=== PATIENT | female | born 1965 | race Caucasian/White ===

== ENCOUNTER 2020-09-08 07:59 | Inpatient (IN) ==
--- NOTE | 2020-08-08 13:07 | PAT Medication Instructions ---
Medication Instructions Date of Service August 08, 2020 Home Medications 1 dose PO QAM Probiotic 1 tab PO QAM acetaminophen [Tylenol Arthritis] 650 mg PO Q12H PRN acetaminophen [Tylenol Extra Strength] 500 mg PO Q6H PRN biotin 1 dose PO QAM diphenhydramine HCl [Benadryl] 25 mg PO HS gabapentin 600 mg PO TID loratadine 10 mg PO QAM meloxicam 15 mg PO QAM pantoprazole 20 mg PO BID turmeric 400 mg PO QAM vitamin B complex [Super B Complex] 1 cap PO QAM ASK your surgeon for instructions meloxicam 15 mg PO QAM STOP taking 2 weeks before surgery (or as soon as possible if surgery is within 2 weeks) turmeric 400 mg PO QAM DO NOT take the morning of surgery 1 dose PO QAM Probiotic 1 tab PO QAM biotin 1 dose PO QAM loratadine 10 mg PO QAM vitamin B complex [Super B Complex] 1 cap PO QAM Take morning of surgery With a small sip of water, OTHERWISE NOTHING TO EAT OR DRINK AFTER MIDNIGHT: acetaminophen [Tylenol Arthritis] 650 mg PO Q12H PRN(okay to take up to 4 hours prior to surgery if needed) acetaminophen [Tylenol Extra Strength] 500 mg PO Q6H PRN(okay to take up to 4 hours prior to surgery if needed) gabapentin 600 mg PO TID pantoprazole 20 mg PO BID Take evening before surgery acetaminophen [Tylenol Arthritis] 650 mg PO Q12H PRN (if needed) acetaminophen [Tylenol Extra Strength] 500 mg PO Q6H PRN (if needed) diphenhydramine HCl [Benadryl] 25 mg PO HS gabapentin 600 mg PO TID pantoprazole 20 mg PO BID Other Notes If you have any questions please call us at [phone] or [phone] or [phone] or [phone]
--- NOTE | 2020-08-09 13:36 | Anesthesiology Consultation ---
Date of Service August 09, 2020 Assessment & Plan (1) Encounter for pre-operative examination: - Per assessment on 08/09: Travel screen negative. No current COVID-19 related symptoms. Patient was COVID positive 07/22/20 (tested due to exposure)- has completed quarantine and was asymptomatic throughout. DOS will be 1+ month after positive COVID test. Surgeon arranging preop COVID testing (scheduled 08/15; surgeon's office). Awaiting results. - Chlorhexidine: Patient had burning/itching with chlorhexidine in the past. No wipes given. - PONV: PONV x multiple surgeries- "severe." Patient states that she has had improvement when scope patch used in the past but still additionally needed further medication post-operatively. Scope patch ordered for AM DOS. Chart Review Chart Review: Acceptable Risk for Surgery and Patient seen in Pre Admission Testing Teaching & Discussion Pre-Anesthesia Teaching/Discussion Notes: Instructed NPO after midnight before surgery,except medications with 15 cc of water. Medication instructions provided according to the PAT guidelines. History Surgery Operation Date: 08/22/20 07:45 Proposed Procedures p L4-S1 Decompression Fusion, L3-L4 Hardware Removal - Asad Stringer, Height/Weight Height: 4 ft 10 in Weight: 68 kg Allergies Allergy/AdvReac Type Severity Reaction Status Date / Time chlorhexidine Allergy burning, Verified 07/18/20 16:23 itching codeine AdvReac Unknown hyperactive Verified 08/09/20 13:35 Medications Home Medications Medication Instructions Recorded Confirmed Last Taken 1 dose PO QAM 07/18/20 07/18/20 Unknown Probiotic 1 tab PO QAM 07/18/20 07/18/20 Unknown acetaminophen [Tylenol Arthritis] 650 mg PO Q12H PRN 07/18/20 07/18/20 Unknown acetaminophen [Tylenol Extra 500 mg PO Q6H PRN 07/18/20 07/18/20 Unknown Strength] biotin 1 dose PO QAM 07/18/20 07/18/20 Unknown diphenhydramine HCl [Benadryl] 25 mg PO HS 07/18/20 07/18/20 Unknown gabapentin 600 mg PO TID 07/18/20 07/18/20 Unknown loratadine 10 mg PO QAM 07/18/20 07/18/20 Unknown meloxicam 15 mg PO QAM 07/18/20 07/18/20 Unknown pantoprazole 20 mg PO BID 07/18/20 07/18/20 Unknown turmeric 400 mg PO QAM 07/18/20 07/18/20 Unknown vitamin B complex [Super B Complex] 1 cap PO QAM 07/18/20 07/18/20 Unknown Past Medical History Medical History Degenerative disc disease GERD (gastroesophageal reflux disease) Obesity Osteoarthritis Spinal stenosis Exercise / Class Metabolic Activity III < 4 Walking/Shop/Light housework Past Family History Family History Mother PONV (postoperative nausea and vomiting) Diabetes Past Surgical History Surgical History History of carpal tunnel release of both wrists History of section x 2 History of colonoscopy History of esophagogastroduodenoscopy (EGD) History of knee replacement procedure of left knee History of knee replacement procedure of right knee History of laminectomy History of left hip replacement History of lumbar fusion History of ovarian cystectomy History of right hip replacement History of sinus surgery x 2 History of total abdominal hysterectomy and bilateral salpingo-oophorectomy Past Anesthesia History No Hx of Anesthesia Complications (except PONV) and No Family Hx of Anesthesia Complications (except mother (PONV)) History of PONV No Hx of Motion Sickness and History of PONV (multiple surgeries- "severe." Patient states that she has had improvement when scope patch used in the past but still additionally needed further medication post-operatively. ) Social History Smoking Status: Former smoker Do You Dip or Chew Tobacco: No Smoking End Date: Quit 2015 (hx tobacco use x 20+ years) Hx Alcohol Use: Yes Alcohol type: beer, wine and hard liquor alcohol intake frequency: 0-2 drinks per day (1-2 drinks/day) Hx Substance Use: Yes substance use type: marijuana Substance Use Type Other:: medical marijuana (tincture + inhaled HS) for insom kunal- advised [place] protocol Review of Systems Patient denies chest pain, shortness of breath, dyspnea on exertion, fever, chills, cough, wheezing, palpitations. Physical Exam Vital Signs VITALS BP 114/66 P 78 TEMP 98.4 SP02 96%RA RESP 18 PHYSICAL Full neck and c-spine range of motion. Full TMJ range of motion. TMD 3 finger breaths Mallampati Score 2 Dentition: intact Lungs: clear throughout to auscultation Cardiac: regular rate and rhythm with occasional extra beat, no murmurs noted Spine: normal Carotid arteries: negative bruit Extremities: no edema Testing Laboratory Results 08/09/20 14:00 08/09/20 14:00 PT 10.5 Seconds (9.0-12.0) 08/09/20 14:00 INR 1.0 (0.9-1.1) 08/09/20 14:00 APTT 29.0 Seconds (21.0-31.0) 08/09/20 14:00 Urine Color Yellow 08/09/20 14:00 Urine Appearance Clear (Clear) 08/09/20 14:00 Urine pH 5.0 (4.5-7.5) 08/09/20 14:00 Ur Specific [place] 1.015 (1.000-1.030) 08/09/20 14:00 Urine Protein Negative (Negative) 08/09/20 14:00 Urine Glucose (UA) Negative (Negative) 08/09/20 14:00 Urine Ketones Negative (Negative) 08/09/20 14:00 Urine Nitrite Negative (Negative) 08/09/20 14:00 Ur Leukocyte Esterase Negative (Negative) 08/09/20 14:00 Blood Type O Positive 08/09/20 14:00 Antibody Screen NEGATIVE 08/09/20 14:00 Electrocardiogram Date: 08/09/20 SB with sinus arrhythmia at 50bpm. Otherwise normal ECG. No significant change compared to 08/23/16 per pan washer review. Chest X-Ray Date: 08/09/20 FINDINGS: Cardiomediastinal and hilar silhouettes are within normal limits. Calcific plaque of the thoracic aorta. There is no pneumothorax, pleural effusion, airspace consolidation or overt pulmonary edema. Degenerative changes of the shoulders and spine. Grade 1 retrolisthesis L2 on L3. Posterior interbody radha and screw fusion hardware noted at L3-L4. IMPRESSION: No acute process.
--- NOTE | 2020-08-09 14:30 | XRay Report ---
XR chest Pre-admission PA/Lat HISTORY: 55 years-old Female pat preoperative exam. No acute chest complaints COMPARISON: None TECHNIQUE: PA and lateral views of the chest FINDINGS: Cardiomediastinal and hilar silhouettes are within normal limits. Calcific plaque of the thoracic aor ta. There is no pneumothorax, pleural effusion, airspace consolidation or overt pulmonary edema. Dege nerative changes of the shoulders and spine. Grade 1 retrolisthesis L2 on L3. Posterior interbody radha and screw fusion hardware noted at L3-L4. IMPRESSION: No acute process. ACT 112: Negative or not required by law. The above report was generated using voice recognition software. It may contain grammatical, syntax o r spelling errors. Electronically signed by: Vasyl Wallace M.D. 08/09/2020 2:29 PM
[2020-08-09 14:58] LABS: Basophils # (auto) 0.01 K/uL (0-0.2); Basophils % (auto) 0.2 %; Eosinophils % (auto) 1.9 %; Hematocrit (blood only) 37.2 % (37-47); Hemoglobin 12.2 g/dL (12.0-16.0); Immature Granulocytes # (auto) 0.01 K/uL (0.00-0.02); Immature Granulocytes % (auto) 0.2 %; Lymphocytes # (auto) 1.34 K/uL (1.2-3.4); Lymphocytes % (auto) 25.5 %; Mean Corpuscular Hemoglobin 31.5 pg (25-34); Mean Corpuscular Hgb Conc 32.8 g/dL (32-36); Mean Corpuscular Volume 96.1 fL (80-100); Mean Platelet Volume 8.8 fL (7.4-10.4); Monocytes # (auto) 0.27 K/uL (0.11-0.59); Monocytes % (auto) 5.1 %; Neutrophils # (auto) 3.52 K/uL (1.4-6.5); Neutrophils % (auto) 67.1 %; Platelet Count 268 K/uL (130-400); RDW Coefficient of Variation 12.4 % (11.5-14.5); RDW Standard Deviation 43.2 fL (36.4-46.3); Red Blood Count 3.87 M/uL (4.2-5.4); White Blood Count 5.25 K/uL (4.8-10.8)
[2020-08-09 15:03] LABS: Appearance Urine Clear (Clear); Bilirubin Urine Negative (Negative); Blood Urine Negative (Negative); Color Urine Yellow; Glucose Urine UA Negative (Negative); Ketones Urine Negative (Negative); Leukocyte Esterase Urine Negative (Negative); Nitrite Urine Negative (Negative); Protein Urine Negative (Negative); Specific Gravity Urine 1.015 (1.000-1.030); Urobilinogen Urine Negative (Negative)
[2020-08-09 15:10] LABS: Prothrombin Time 10.5 Seconds (9.0-12.0)
[2020-08-09 15:12] LABS: BUN Creatinine Ratio 20.1 (10-20); Calcium 9.3 mg/dl (8.5-10.1); Creatinine Clr Calc Pharmacy 71.3 ml/min; Est GFR (African American) 108.5; Est GFR (Non-African American) 93.6; Potassium 3.7 mmol/L (3.5-5.1)
--- NOTE | 2020-08-10 05:08 | Electrocardiogram Report ---
Test Reason : Blood Pressure : / mmHG Vent. Rate : 050 BPM Atrial Rate : 050 BPM P-R Int : 158 ms QRS Dur : 098 ms QT Int : 424 ms P-R-T Axes : 071 064 041 degrees QTc Int : 386 ms Sinus bradycardia with sinus arrhythmia Otherwise normal ECG When compared with ECG of 23-AUG-2016 13:26, No significant change was found Confirmed by Ariel Mahoney ([id number]) on 08/10/2020 5:08:04 AM Referred By: Asad Stringer Confirmed By:Ariel Mahoney
[~2020-09-08 07:59] MED LIST: ACETAMINOPHEN 500 MG TAB PO SCH; CeleBREX 200 MG CAP PO SCH; GABAPENTIN 600 MG DOSE PO SCH; LR 15ML/HR IV SCH; Scopolamine CHECK PATCH PLACEMENT SCH; ceFAZolin 1000MG 1,000 MG/7.5 ML SYR IV SCH
[2020-09-08] MEDS ORDERED: fentaNYL citrate 100 MCG/2 ML VIAL ONE (08:13)
[2020-09-08] MEDS ORDERED: MIDAZOLAM HCL 1 MG/ML 2ML VIAL ONE (08:13)
--- NOTE | 2020-09-08 08:58 | History & Physical Bridge Note ---
Date of Service September 08, 2020 History & Physical Bridge Note I have examined the patient, reviewed the History & Physical and in the interval since the performance of the History & Physical I have noted the following changes of clinical significance: no changes noted
--- NOTE | 2020-09-08 08:59 | History & Physical Report ---
Date of Service September 08, 2020 Assessment & Plan (1) Neurogenic claudication due to lumbar spinal stenosis: Admission and Anticipated Discharge Date Admission Date: L4-S1 decompression fusion, hardware removal L3-L4. History of Present Illness Chief Complaint: Back and bilateral leg pain Primary Care Provider: Asad Hsu DO This is a 55-year-old female who presents with chronic persistent back and bilateral leg pain. After failing course of nonoperative care is here for surgical intervention. Allergies Allergy/AdvReac Type Severity Reaction Status Date / Time codeine AdvReac Unknown hyperactive Verified 09/08/20 08:28 Home Medications Medication Instructions Recorded Confirmed Type 1 dose PO QAM 07/18/20 09/08/20 History Probiotic 1 tab PO QAM 07/18/20 09/08/20 History acetaminophen [Tylenol Arthritis] 650 mg PO Q12H PRN 07/18/20 09/08/20 History acetaminophen [Tylenol Extra 500 mg PO Q6H PRN 07/18/20 09/08/20 History Strength] biotin 1 dose PO QAM 07/18/20 09/08/20 History diphenhydramine HCl [Benadryl] 25 mg PO HS 07/18/20 09/08/20 History gabapentin 600 mg PO TID 07/18/20 09/08/20 History loratadine 10 mg PO QAM 07/18/20 09/08/20 History meloxicam 15 mg PO QAM 07/18/20 09/08/20 History pantoprazole [Protonix] 20 mg PO BID 07/18/20 09/08/20 History turmeric 400 mg PO QAM 07/18/20 09/08/20 History vitamin B complex [Super B Complex] 1 cap PO QAM 07/18/20 09/08/20 History Past Med/Surg History Medical History (Updated 09/08/20 @ 08:58 by Asad Stringer DO) Degenerative disc disease GERD (gastroesophageal reflux disease) Obesity Osteoarthritis Spinal stenosis Surgical History History of carpal tunnel release of both wrists History of section x 2 History of colonoscopy History of esophagogastroduodenoscopy (EGD) History of knee replacement procedure of left knee History of knee replacement procedure of right knee History of laminectomy History of left hip replacement History of lumbar fusion History of ovarian cystectomy History of right hip replacement History of sinus surgery x 2 History of total abdominal hysterectomy and bilateral salpingo-oophorectomy Family History Mother PONV (postoperative nausea and vomiting) Diabetes Social History Smoking Status: Former smoker Smoking End Date: Quit 2015 (hx tobacco use x 20+ years); Second Hand Exposure: No; Do You Dip or Chew Tobacco: No; Tobacco Cessation Education Requested by Patient: No Hx Alcohol Use: Yes Alcohol type: beer, wine and hard liquor Hx Substance Use: Yes Substance Use Type Other:: medical marijuana (tincture + inhaled HS) for insomnia- advised [place] protocol Preferred Language: Macedonian Communication Ability: Effective Manager Lvn Required: No Beliefs That Will Affect Care: None Current Living Situation: Spouse Feels Safe at Home: Yes Safety Concerns: Feels Safe At This Time Assistive Devices: Glasses Physical Exam Physical Exam: Patient is alert and oriented neurologically intact Heart regular in rhythm Lungs clear to auscultation
[2020-09-08] MEDS ORDERED: PROMETHAZINE HCL 6.25 MG in SODIUM CHLORIDE 0.9% 50 ML IV PRN (09:08)
[2020-09-08] MEDS ORDERED: fentaNYL citrate 100 MCG/2 ML VIAL IV PRN (09:08)
[2020-09-08] MEDS ORDERED: HYDROmorphone INJ 2 MG/ML SYR/VIAL IV PRN (09:08)
[2020-09-08] MEDS ORDERED: ePHEDrine sulfate 50 MG/ML AMP IV PRN (09:08)
[2020-09-08] MEDS ORDERED: ATROPINE SULFATE 0.1 MG/ML 10ML SYR IV PRN (09:08)
[2020-09-08] MEDS ORDERED: ONDANSETRON INJ 2 MG/ML 2 ML VIAL IV PRN ×2 (09:08→14:00)
[2020-09-08] MEDS ORDERED: BACITRACIN INJ 50,000 UNIT VIAL ONE (09:18)
[2020-09-08] MEDS: LACTATED RINGER'S 1,000 ML IV SCH ×2 (09:19→14:16)
[2020-09-08] MEDS ORDERED: BUPIVACAINE/EPINEPHRINE 0.5% MPF 1:200,000 30 ML VIAL ONE (09:19)
[2020-09-08] MEDS ORDERED: HYDROmorphone INJ 2 MG/ML SYR/VIAL ONE (10:14)
[2020-09-08] MEDS ORDERED: ROCURONIUM BROMIDE 10 MG/ML 5 ML VIAL IV ONE (10:16)
[2020-09-08] MEDS ORDERED: ONDANSETRON INJ 2 MG/ML 2 ML VIAL ONE (10:16)
[2020-09-08] MEDS ORDERED: LIDOCAINE HCL 2% 2 ML VIAL/AMP(20MG/ML) INFIL ONE (10:16)
[2020-09-08] MEDS ORDERED: NEOSTIGMINE METHYLSULFATE 1 MG/ML 10ML VIAL ONE (10:16)
[2020-09-08] MEDS ORDERED: GLYCOPYRROLATE 0.2 MG/ML VIAL ONE (10:16)
[2020-09-08] MEDS ORDERED: ePHEDrine sulfate 50 MG/ML SYR ONE (10:16)
[2020-09-08] MEDS ORDERED: PROPOFOL IV EMULSION 10 MG/ML 20 ML VIAL IV ONE (10:16)
[2020-09-08] MEDS ORDERED: DEXAMETHASONE SOD INJ 4 MG/ML VIAL ONE (10:16)
[2020-09-08] MEDS ORDERED: LARYING-O-JET KIT (LTA) ONE (10:16)
[2020-09-08] MEDS ORDERED: PHENYLEPHRINE 100MCG/ML 5ML SYR ONE (10:16)
[2020-09-08] MEDS ORDERED: FLOSEAL HEMOSTATIC MATRIX 10ML TOP ONE (10:54)
[2020-09-08] MEDS ORDERED: ceFAZolin 1000MG 1,000 MG/7.5 ML SYR IV ONE (11:20)
--- NOTE | 2020-09-08 12:24 | Operative Report ---
Post Operative Report Pre & Post Diagnosis Operation Date: 09/08/20 09:35 Pre-Op Diagnosis: Spinal Stenosis lumbar Regsion with Neurogenic Claudication Post-Op Diagnosis: Spinal Stenosis lumbar Regsion with Neurogenic Claudication I identified the patient and participated in the time-out.: Yes Procedure Operation Date: 09/08/20 09:35 Actual Procedures #1 removal of instrumentation L3-L4 per #2 exploration of fusion L3-4 per #3 revision decompression with bilateral medial facetectomies and foraminotomies L4-5 and L5-S1. #4 posterior spinal fusion L3-4 L4-5 L5-S1. #5 placement posterior segmental instrumentation L3-4 L4-5 L5-S1. #6 interbody fusion L5-S1. #7 placement peek cage 11 x 26 mm at L5-S1. #8 placement of locally harvested morselized autograft in the posterior gutters. #9 placement infuse collagen sponge and master graft in the posterior lateral gutters and ostial amp interbody space. Surgeon Asad Stringer, DO [employer] Maksim Lopez Estimated Blood Loss 350 Findings Consistent with Post-Op Diagnosis Specimens None Indications This is a 55-year-old female known to me the presents with the above-mentioned diagnosis after failing extensive course of nonoperative care and having decline in neurologic function is here for surgical intervention. Description of Procedure Patient was met with identified informed consent obtained. Patient was then taken to the operative suite underwent a patient placed in a prone position Kayode table top Antoni frame. All bony prominences well-padded eyes inspected to ensure no external pressure placed upon the. This point the lumbar spine was prepped and draped in a sterile fashion. Sharp dissection with assistance of Bovie cartilage form down to and exposing the instrumentation at L3-L4 and the remaining lamina at L5 and the transverse processes and sacral ala. I then proceeded move the hardware at L3 and L4 bilaterally explore the fusion mass appreciating some lack of maturity. I then performed revision complete laminectomy of L5 and L4 from caudal to cephalad fashion putting bilateral medi al facetectomies and foraminotomies addressing severe spinal stenosis. Pedicle screws were then placed in all 3 L4-L5 and S1 levels with the assistance of fluoroscopy the proper sized radha placed. By way of a transforaminal approach on the right a complete discectomy of L5-S1 was performed endplates curetted to subcortical being bone and a 11 x 26 mm peek cage filled with osteobone graft tapped position. Rods were then locked in final position bilaterally. The transverse processes of L3 L4-5 and the sacral ala burred to subcortical bleeding bone. Infuse collagen sponge master graft local graft was placed in the posterior gutters. 15 round JASMYN drain inserted. The incision was then closed with 1 Vicryl fascia 2-0 Vicryl subcutaneously and 4 Monocryl for final skin closure. Steri-Strip sterile dressings placed. Patient will continue PACU stable condition. Please note spinal cord monitoring was utilized at the procedure no changes noted. Lastly Maksim Lopez was present at the entire surgery involved in patient positioning complex portions of the surgery and final skin closure. I attest to the content of the Intraoperative Record and any orders documented therein. Any exceptions are noted below.
--- NOTE | 2020-09-08 12:29 | Fluoroscopy Report ---
FL lumbar spine 2-3V HISTORY: 55 years-old Female L4-S1 DECOMPRESSION/FUSION chronic low back pain COMPARISON: None TECHNIQUE: 4 Spot fluoroscopic views of the lumbar spine were obtained utilizing 30.2 seconds fluoros copy time FINDINGS: Posterior interbody radha and screw fusion hardware noted at what appears to be the L3-S1 levels. Disce ctomy changes at L5-S1. The hardware appears intact. No acute fracture or subluxation identified. Mul tilevel disc space narrowing with spondylitic spurring. Indeterminate small linear opaque structure o verlies the right posterior aspect of the L5-S1 disc space with additional partially imaged linear op aque structure of the midline lower pelvis. IMPRESSION: Fluoroscopic assistance as above. Please see operative report for further details. ACT 112: Negative or not required by law. The above report was generated using voice recognition software. It may contain grammatical, syntax o r spelling errors. Electronically signed by: Vasyl Wallace M.D. 09/08/2020 12:27 PM
--- NOTE | 2020-09-08 13:39 | Anesthesiology Progress Note ---
Date of Service September 08, 2020 Anesthesia Post Procedure Vital Signs Vital Signs: Temp Pulse Pulse Resp BP BP Pulse Ox 09/08/20 13:30 36.1 C L 89 16 99/58 L 100 09/08/20 13:15 55 L 14 98/61 L 97 09/08/20 13:05 56 L 15 102/63 98 09/08/20 12:55 66 14 106/55 L 100 09/08/20 12:45 36.1 C L 87 16 111/64 100 09/08/20 08:32 37.3 C 60 18 144/86 H 100 Pain Intensity Bilateral Lower Back: Pain Intensity: 5 Left Leg: Pain Intensity: 4 Right Leg: Pain Intensity: 7 Transfer of Care Handoff Completed per policy Notes Mental Status: alert / awake / arousable Patient Amnestic to Procedure: Yes Nausea / Vomiting: adequately controlled Pain: adequately controlled Airway Patency, RR, SpO2: stable & adequate BP & HR: stable & adequate Hydration State: stable & adequate Anesthetic Complications: no major complications apparent
[2020-09-08] MEDS ORDERED: SOD PHOSPHATE/SOD BIPHOSPHATE ENEMA 132 ML BTL PR PRN (14:00)
[2020-09-08] MEDS ORDERED: FAMOTIDINE 20 MG TAB PO PRN (14:00)
[2020-09-08] MEDS ORDERED: PROMETHAZINE HCL 12.5 MG in SODIUM CHLORIDE 0.9% 50 ML IV PRN ×2 (14:00→16:05)
[2020-09-08] MEDS ORDERED: LORazepam 0.5 MG TAB PO PRN (14:00)
[2020-09-08] MEDS ORDERED: NALOXONE HCL 0.4 MG/1 ML VIAL/CARP IV PRN (14:00)
[2020-09-08] MEDS ORDERED: diphenhydrAMINE Capsule 25 MG CAP PO PRN (14:00)
[2020-09-08] MEDS ORDERED: METOCLOPRAMIDE HCL INJ 5 MG/ML 2 ML VIAL IV PRN (14:00)
[2020-09-08] MEDS ORDERED: HYDROmorphone INJ 0.5 MG/0.5 ML SYR IV PRN (14:00)
[2020-09-08] MEDS ORDERED: HYDROmorphone INJ 1 MG/ML SYRINGE IV PRN (14:00)
[2020-09-08] MEDS ORDERED: hydrOXYzine HCl 25 MG TAB PO PRN (14:00)
[2020-09-08] MEDS ORDERED: DO NOT ADMINISTER FLU VACCINE PRN (14:00)
[2020-09-08] MEDS ORDERED: ALUMINUM/MAGNESIUM SUSP 30 ML UDC PO PRN (14:00)
[2020-09-08] MEDS ORDERED: ACETAMINOPHEN 1,000 MG/100 ML VIAL IV PRN (14:00)
[2020-09-08] MEDS ORDERED: traMADol HCL 50 MG TABLET PO PRN (14:00)
[2020-09-08] MEDS ORDERED: ACETAMINOPHEN 500 MG TAB PO PRN (14:00)
[2020-09-08] MEDS ORDERED: bisacodyL 10 MG SUPP PR PRN (14:00)
[2020-09-08] MEDS ORDERED: ONDANSETRON 4 MG OD TAB PO PRN (14:00)
[2020-09-08] MEDS ORDERED: LORazepam 0.5 MG/1 ML VIAL IV PRN (14:00)
[2020-09-08] MEDS ORDERED: DO NOT ADMINISTER PNEUMOCOCCAL VACCINE PRN (14:00)
[2020-09-08] MEDS ORDERED: MAGNESIUM HYDROXIDE SUSP 30 ML UDC PO PRN (14:00)
[2020-09-08] MEDS: KETOROLAC TROMETHAMINE 15 MG/ML VIAL IV SCH ×2 (14:22→20:32)
[2020-09-08] MEDS: GABAPENTIN 600 MG TAB PO SCH ×2 (15:50→20:31)
--- NOTE | 2020-09-08 16:08 | Hospitalist Progress Note ---
Date of Service September 08, 2020 Assessment & Plan (1) Neurogenic claudication due to lumbar spinal stenosis: post op per ortho (2) Nausea: has zofran prn added phenergan prn breakthrough nausea has prn pepcid, added one time dose now supportive care (3) DVT prophylaxis: per ortho - scds Admission and Anticipated Discharge Date Admission Date: September 08, 2020 Subjective feeling ok other than nausea. notes that she typically gets nausaeted for a day or so after surgeries. still has leg symptoms but notes they were going on for a while Review of Systems Review of Systems: All systems reviewed & are unremarkable except as noted in HPI & below Physical Exam Physical Exam: gen aao pleasant nad heent nc at mmm breathing unlabored no accessory muscles good effort skin no rashes no palllor or icterus neuro no focal deficits Results & Data Results & Data ([facility]) Vital Signs (Past 12 Hours) Vital Signs Temp Pulse Pulse Pulse Resp BP BP 09/08/20 15:54 97.3 F L 56 L 16 106/69 09/08/20 14:53 78 17 104/70 09/08/20 13:50 97.3 F L 63 14 118/72 09/08/20 13:30 97.0 F L 89 16 99/58 L 09/08/20 13:15 55 L 14 98/61 L 09/08/20 13:05 56 L 15 102/63 09/08/20 12:55 66 14 106/55 L 09/08/20 12:45 97.0 F L 87 16 111/64 09/08/20 08:32 99.1 F 60 18 144/86 H Pulse Ox 09/08/20 15:54 96 09/08/20 14:53 100 09/08/20 13:50 97 09/08/20 13:30 100 09/08/20 13:15 97 09/08/20 13:05 98 09/08/20 12:55 100 09/08/20 12:45 100 09/08/20 08:32 100 PG Care Time/CCT Total # of Minutes Spent Total Time Spent with Patient: Total time spent is greater than 50% in coordination of care (as documented) at patient's floor/unit and/or counseling patient: Coding Level of Care Code 48582 Subseq Hosp Care Lvl 2 Diagnoses Neurogenic claudication due to lumbar spinal stenosis M48.062 Nausea R11.0 DVT prophylaxis Z29.9
[2020-09-08] MEDS ORDERED: FAMOTIDINE 20 MG in SYRINGE 3 ML IV ONE (16:30)
[2020-09-08] MEDS: ceFAZolin 1000MG 1,000 MG/7.5 ML SYR IV SCH (17:18)
[2020-09-08] MEDS: DOCUSATE SODIUM/SENNA 50/8.6MG TAB PO SCH (20:30)
[2020-09-08] MEDS: PANTOprazole 40 MG TAB PO SCH (20:31)
[2020-09-08] MEDS: diphenhydrAMINE Capsule 25 MG CAP PO SCH (20:32)
[2020-09-09] MEDS: LACTATED RINGER'S 1,000 ML IV SCH ×2 (00:18→09:29)
[2020-09-09] MEDS: ceFAZolin 1000MG 1,000 MG/7.5 ML SYR IV SCH (02:32)
[2020-09-09] MEDS: KETOROLAC TROMETHAMINE 15 MG/ML VIAL IV SCH ×2 (02:32→07:56)
[2020-09-09] MEDS: POLYETHYLENE (MIRALAX) 17 GM PACK PO SCH ×4 (05:30→23:37)
[2020-09-09] MEDS: oxyCODONE HCL IR 5 MG TAB (IMMEDIATE RELEASE) PO PRN ×2 (05:36→20:11)
[2020-09-09 06:21] LABS: Basophils # (auto) 0.01 K/uL (0-0.2); Basophils % (auto) 0.2 %; Hematocrit (blood only) 27.5 % (37-47); Hemoglobin 9.2 g/dL (12.0-16.0); Immature Granulocytes # (auto) 0.02 K/uL (0.00-0.02); Immature Granulocytes % (auto) 0.3 %; Lymphocytes # (auto) 1.49 K/uL (1.2-3.4); Lymphocytes % (auto) 22.6 %; Mean Corpuscular Hemoglobin 31.8 pg (25-34); Mean Corpuscular Hgb Conc 33.5 g/dL (32-36); Mean Corpuscular Volume 95.2 fL (80-100); Mean Platelet Volume 8.6 fL (7.4-10.4); Monocytes # (auto) 0.37 K/uL (0.11-0.59); Monocytes % (auto) 5.6 %; Neutrophils % (auto) 71.3 %; Platelet Count 214 K/uL (130-400); RDW Coefficient of Variation 12.3 % (11.5-14.5); RDW Standard Deviation 41.8 fL (36.4-46.3); Red Blood Count 2.89 M/uL (4.2-5.4); White Blood Count 6.59 K/uL (4.8-10.8)
[2020-09-09 06:58] LABS: BUN Creatinine Ratio 16.4 (10-20); Calcium 8.3 mg/dl (8.5-10.1); Creatinine Clr Calc Pharmacy 89.8 ml/min; Est GFR (African American) 120.1; Est GFR (Non-African American) 103.6
[2020-09-09] MEDS: LORATADINE 10 MG TAB PO SCH (09:27)
[2020-09-09] MEDS: MULTIVITAMIN TAB PO SCH (09:27)
[2020-09-09] MEDS: PANTOprazole 40 MG TAB PO SCH ×2 (09:28→20:11)
[2020-09-09] MEDS: ADVANCED PROBIOTIC 1250 MG CAPSULE PO SCH (09:28)
[2020-09-09] MEDS: GABAPENTIN 600 MG TAB PO SCH ×3 (09:28→20:11)
--- NOTE | 2020-09-09 10:54 | Orthopedic Progress Note ---
Date of Service September 09, 2020 Assessment & Plan (1) Neurogenic claudication due to lumbar spinal stenosis: Admission and Anticipated Discharge Date Admission Date: September 08, 2020 This time continue physical therapy monitor JASMYN output anticipate discharge home in the next few days. Subjective Back pain controlled leg symptoms improved still significant numbness to left lower extremity Physical Exam Physical Exam: Patient is ambulating halls with a walker appears comfortable Results & Data ([facility]) Vital Signs (Past 12 Hours) Vital Signs Temp Pulse Resp BP Pulse Ox 09/09/20 05:58 36.9 C 79 16 121/64 96 09/09/20 02:50 37.2 C 88 16 96/60 L 93 09/08/20 23:50 36.8 C 85 16 97/64 L 92
--- NOTE | 2020-09-09 15:46 | Hospitalist Progress Note ---
Date of Service September 09, 2020 Assessment & Plan (1) Neurogenic claudication due to lumbar spinal stenosis: post op per ortho (2) Nausea: resolved (3) Anemia: acute blood loss in the range of expected. appears asymptomatic. BP/HR acceptable (4) DVT prophylaxis: per ortho - scds (5) Discharge planning issues: per ortho PT eval and treat medically appearing overall stable - will sign off at this time, thanks Admission and Anticipated Discharge Date Admission Date: September 08, 2020 Subjective feeling better nausea better dw ortho Review of Systems Review of Systems: All systems reviewed & are unremarkable except as noted in HPI & below Physical Exam Physical Exam: gen aaox3 pleasant nad heent nc at mmm breathing unlabored no accessory muscles good effort skin no rashes no pallor or icterus Results & Data Results & Data ([facility]) Vital Signs (Past 12 Hours) Vital Signs Temp Pulse Resp BP Pulse Ox 09/09/20 05:58 98.4 F 79 16 121/64 96 PG Care Time/CCT Total # of Minutes Spent Total Time Spent with Patient: Total time spent is greater than 50% in coordination of care (as documented) at patient's floor/unit and/or counseling patient: Coding Level of Care Code 61583 Subseq Hosp Care Lvl 1 Diagnoses Neurogenic claudication due to lumbar spinal stenosis M48.062 Nausea R11.0 Anemia D64.9 DVT prophylaxis Z29.9 Discharge planning issues Z02.9
[2020-09-09] MEDS: diphenhydrAMINE Capsule 25 MG CAP PO SCH (20:11)
[2020-09-09] MEDS: DOCUSATE SODIUM/SENNA 50/8.6MG TAB PO SCH (20:11)
[2020-09-10] MEDS: POLYETHYLENE (MIRALAX) 17 GM PACK PO SCH ×2 (00:31→13:15)
[2020-09-10] MEDS ORDERED: DEXAMETHASONE SOD PHOSPHATE 8 MG in SYRINGE 0 ML IV SCH (09:00)
[2020-09-10] MEDS: LORATADINE 10 MG TAB PO SCH (09:22)
[2020-09-10] MEDS: MULTIVITAMIN TAB PO SCH (09:22)
[2020-09-10] MEDS: GABAPENTIN 600 MG TAB PO SCH ×2 (09:23→13:12)
[2020-09-10] MEDS: PANTOprazole 40 MG TAB PO SCH (09:23)
[2020-09-10] MEDS: ADVANCED PROBIOTIC 1250 MG CAPSULE PO SCH (09:23)
--- NOTE | 2020-09-10 10:40 | Discharge Summary ---
Date of Service September 10, 2020 Admission HPI Per Admitting Provider This is a 55-year-old female who presents with chronic persistent back and bilateral leg pain. After failing course of nonoperative care is here for surgical intervention. Principal Diagnosis Lumbar spinal stenosis with neurogenic claudication Discharge Data Allergies Allergy/AdvReac Type Severity Reaction Status Date / Time codeine AdvReac Unknown hyperactive Verified 09/08/20 08:28 Consultations 09/08/20 14:00 Consult Case Management - Discharge Planning Routine 09/08/20 14:37 Consult Hospitalist Routine Procedures Performed Operation Date: 09/08/20 09:35 Actual Procedures p L4-S1 Decompression Fusion, use of Infuse, use of Osteoamp; interbody cage at L5-S1; Spinal Cord Monitoring(Not Applicable) - Asad Stringer DO s L3-L4 Hardware Removal(Not Applicable) - Asad Stringer DO Ordered Studies 09/08/20 07:00 FL fluoroscopy <1hr Routine FL lumbar spine 2-3V Routine Hospital Course (1) Neurogenic claudication due to lumbar spinal stenosis: Patient underwent lumbar decompression fusion tolerated this well was taken to orthopedic for postop labor postop day #1 leg symptoms were improved. She briskly postop #2 2. Excellent strength testing. Subsequently discharged home with her drain in place for removal in the office next week. Discharge orders instructions from the chart for further review. Total Time Total Time Spent Total Time Spent (In Minutes): 20 minutes Discharge Plan Discharge Items Patient Disposition: Home - Self-Care Reason For Visit: Spinal Stenosis lumbar Regsion with Neurogenic Cla Discharge Diagnosis: Lumbar spinal stenosis with neurogenic claudication Activity: As commented below Non-emergency contact: Primary Care Provider Call non-emergency contact if: you have any medication questions Follow-up/Referrals: Asad Hsu DO [Primary Care Provider] - Diet: Regular Addtl Attending Provider Instructions: ACTIVITY RECOMMENDATIONS: SELF CARE INSTRUCTIONS AFTER THORACIC/LUMBAR FUSIONS 1. You may walk to your tolerance. It is good exercise for your legs and back. Expect some back and intermittent leg aches and pains. 2. You may perform "counter-top" level activities (make a sandwich, sanju with a project, etc.). 3. No bending or lifting of more than 10 pounds or back twisting of any nature (roll like a log when turning in bed). 4. You may ride in a car for 20-30 minutes at a time. No driving until after your first visit with your doctor. 5. Frequent changes of position and restricting sitting to 30 minutes at a time will help limit the amount of back spasms and stiffness you may experience. 6. You may discontinue the use of ambulatory aids (cane, crutches, etc.) once your strength and confidence allow. 7. You may advertising traffic manager the shower and let water strike your incision when you arrive home at least once daily. Do not take a tub bath, sit in a hot tub or go into a swimming pool until after your first recheck in the office. SPECIAL CARE INSTRUCTIONS: VERY IMPORTANT TO READ AND REVIEW A. Your surgical incision has been closed with a cosmetic suture under the skin that will dissolve in about 6 weeks. In 14 days, you can use a pair of clean scissors and cut the suture that is left outside of the skin at the ends of your incision. 1. The small skin tapes can be removed 7 days after surgery if they have not fallen off by that point. 2. You may keep the wound open to air as much as possible to promote healing after post-op day number 5 unless told otherwise by your doctor. 3. If you think the wound looks like it is becoming infected (redness or worsening drainage) and/or you are experiencing fever, chill or worsening back pain and muscle spasms, contact the office so that we may evaluate you as soon as possible. B. Complications are uncommon, but please contact us if you have any signs or symptoms of: 1. wound infection (fever higher than 102.5 degrees F, redness, separation of wound, drainage, or increasing pain from the incision) 2. blood clots in legs (pain, swelling, redness and warmth in legs) 3. urinary tract infection (fever higher than 102.5 degrees F, burning upon urination or increased frequency of urination) 4. nerve problems (inability to walk on your toes or heels, numbness, loss of bowel or bladder control) 5. any other symptoms that concern you C. Please call the office at if you have any concerns or questions about your operation or recovery. D. No smoking! Smoking drastically decreases the chance of a solid fusion. E. Do not take any anti-inflammatory medications (Indocin, Advil, Motrin, Aspirin, Naprosyn, etc.) as these may inhibit the chance of a solid fusion. Tylenol is okay to take for pain. MANAGING PAIN AFTER SPINAL SURGERY 1. Narcotic medication is intended for short-term use and will be provided for surgical pain. Surgical pain usually lasts for a period of 4-6 weeks. Narcotic medication includes Percocet, Vicodin, Darvocet, Tylenol #3 or Lortab. 2. Longer-term pain is more appropriately treated with non-narcotic medication such as Tylenol ES. 3. Muscle spasm is not appropriately treated with narcotics. Muscle relaxers such as Soma, Flexeril or Skelaxin can be used along with Tylenol ES. 4. Remember that we all live with some "aches and pains". This is not unusual or uncommon after an injury or as we get older. a. Back pain is expected and may include muscle spasms for 4 to 6 weeks after surgery. The pain should gradually improve. If the pain worsens for no apparent reason, please contact the office. b. Intermittent leg pain may also be experienced and should not be concerned about unless it worsens for no apparent reason. If so, please contact the office. 5. We will provide appropriate medication within the normal guidelines of their prescribed use. We will also be very cautious and aware of potential abuse and extended duration of patients' medication needs. a. Pain medications are for your comfort and to assist with sleep and rest so that the tissue can heal. They are not provided in order to return to normal activity and should not be used through the day. To do so or worsening pain at night can result from ongoing tissue damage and development of tolerance to the prescribed medicine. 6. Please allow 2-3 days to process refills. Prescriptions will not be mailed but must be picked up at the office. FOLLOW UP VISIT: Keep your scheduled follow-up appointment. Any questions, please call the office at . Pending Studies at Discharge: No Stand-Alone Forms: [employer], Smoking Cessation Medications and DC Order Prescriptions: New oxycodone 5 mg tablet 5 mg PO Q6H PRN (Reason: pain, severe) Qty: 20 RF: 0 tramadol 50 mg tablet 50 mg PO Q6H PRN (Reason: pain, moderate) Qty: 30 RF: 0 Continued gabapentin 600 mg Tablet 600 mg PO TID RF: 0 meloxicam 15 mg Tablet 15 mg PO QAM RF: 0 acetaminophen [Tylenol Arthritis] 650 mg Tablet Extended Release 650 mg PO Q12H PRN (Reason: Pain) RF: 0 pantoprazole [Protonix] 20 mg Tablet,Delayed Release (Dr/Ec) 20 mg PO BID RF: 0 diphenhydramine HCl [Benadryl] 25 mg Capsule 25 mg PO HS RF: 0 acetaminophen [Tylenol Extra Strength] 500 mg Capsule 500 mg PO Q6H PRN (Reason: Pain) RF: 0 loratadine 10 mg Tablet 10 mg PO QAM RF: 0 vitamin B complex [Super B Complex] Capsule 1 cap PO QAM RF: 0 turmeric 400 mg Capsule 400 mg PO QAM RF: 0 1 dose PO QAM RF: 0 Probiotic 1 tab PO QAM RF: 0 biotin 1 dose PO QAM RF: 0 Discharge Orders: Discharge Order (Routine); Ordered 09/10/20 Ordered By: Asad Stringer Admission Data Admit Date/Time: 09/08/20 13:04 Attending Provider: Asad Stringer Admit Provider: Asad Stringer Primary Care Provider: Asad Hsu Other Providers: Zay Bernabe
--- NOTE | 2020-09-10 10:42 | Discharge Summary ---
Date of Service September 10, 2020 Admission HPI Per Admitting Provider This is a 55-year-old female who presents with chronic persistent back and bilateral leg pain. After failing course of nonoperative care is here for surgical intervention. Principal Diagnosis Lumbar spinal stenosis with neurogenic claudication Discharge Data Allergies Allergy/AdvReac Type Severity Reaction Status Date / Time codeine AdvReac Unknown hyperactive Verified 09/08/20 08:28 Consultations 09/08/20 14:00 Consult Case Management - Discharge Planning Routine 09/08/20 14:37 Consult Hospitalist Routine Procedures Performed Operation Date: 09/08/20 09:35 Actual Procedures p L4-S1 Decompression Fusion, use of Infuse, use of Osteoamp; interbody cage at L5-S1; Spinal Cord Monitoring(Not Applicable) - Asad Stringer DO s L3-L4 Hardware Removal(Not Applicable) - Asad Stringer DO Ordered Studies 09/08/20 07:00 FL fluoroscopy <1hr Routine FL lumbar spine 2-3V Routine Hospital Course (1) Neurogenic claudication due to lumbar spinal stenosis: Patient underwent lumbar decompression fusion tolerated well was taken to orthopedic floor postoperatively postop day 1 she was up and ambulating leg symptoms improved progressed to postop day #2. Subsequent discharge home. She had excellent strength testing. We did maintain the drain for removal in the office. Discharge orders instructions from the chart for further review. Total Time Total Time Spent Total Time Spent (In Minutes): 20 minutes Discharge Plan Discharge Items Patient Disposition: Home - Self-Care Reason For Visit: Spinal Stenosis lumbar Regsion with Neurogenic Cla Discharge Diagnosis: Lumbar spinal stenosis with neurogenic claudication Activity: As commented below Non-emergency contact: Primary Care Provider Call non-emergency contact if: you have any medication questions Follow-up/Referrals: Asad Hsu DO [Primary Care Provider] - Diet: Regular Addtl Attending Provider Instructions: ACTIVITY RECOMMENDATIONS: SELF CARE INSTRUCTIONS AFTER THORACIC/LUMBAR FUSIONS 1. You may walk to your tolerance. It is good exercise for your legs and back. Expect some back and intermittent leg aches and pains. 2. You may perform "counter-top" level activities (make a sandwich, sanju with a project, etc.). 3. No bending or lifting of more than 10 pounds or back twisting of any nature (roll like a log when turning in bed). 4. You may ride in a car for 20-30 minutes at a time. No driving until after your first visit with your doctor. 5. Frequent changes of position and restricting sitting to 30 minutes at a time will help limit the amount of back spasms and stiffness you may experience. 6. You may discontinue the use of ambulatory aids (cane, crutches, etc.) once your strength and confidence allow. 7. You may reporting specialist the shower and let water strike your incision when you arrive home at least once daily. Do not take a tub bath, sit in a hot tub or g o into a swimming pool until after your first recheck in the office. SPECIAL CARE INSTRUCTIONS: VERY IMPORTANT TO READ AND REVIEW A. Your surgical incision has been closed with a cosmetic suture under the skin that will dissolve in about 6 weeks. In 14 days, you can use a pair of clean scissors and cut the suture that is left outside of the skin at the ends of your incision. 1. The small skin tapes can be removed 7 days after surgery if they have not fallen off by that point. 2. You may keep the wound open to air as much as possible to promote healing after post-op day number 5 unless told otherwise by your doctor. 3. If you think the wound looks like it is becoming infected (redness or worsening drainage) and/or you are experiencing fever, chill or worsening back pain and muscle spasms, contact the office so that we may evaluate you as soon as possible. B. Complications are uncommon, but please contact us if you have any signs or symptoms of: 1. wound infection (fever higher than 102.5 degrees F, redness, separation of wound, drainage, or increasing pain from the incision) 2. blood clots in legs (pain, swelling, redness and warmth in legs) 3. urinary tract infection (fever higher than 102.5 degrees F, burning upon urination or increased frequency of urination) 4. nerve problems (inability to walk on your toes or heels, numbness, loss of bowel or bladder control) 5. any other symptoms that concern you C. Please call the office at if you have any concerns or questions about your operation or recovery. D. No smoking! Smoking drastically decreases the chance of a solid fusion. E. Do not take any anti-inflammatory medications (Indocin, Advil, Motrin, Aspirin, Naprosyn, etc.) as these may inhibit the chance of a solid fusion. Tylenol is okay to take for pain. MANAGING PAIN AFTER SPINAL SURGERY 1. Narcotic medication is intended for short-term use and will be provided for surgical pain. Surgical pain usually lasts for a period of 4-6 weeks. Narcotic medication includes Percocet, Vicodin, Darvocet, Tylenol #3 or Lortab. 2. Longer-term pain is more appropriately treated with non-narcotic medication such as Tylenol ES. 3. Muscle spasm is not appropriately treated with narcotics. Muscle relaxers such as Soma, Flexeril or Skelaxin can be used along with Tylenol ES. 4. Remember that we all live with some "aches and pains". This is not unusual or uncommon after an injury or as we get older. a. Back pain is expected and may include muscle spasms for 4 to 6 weeks after surgery. The pain should gradually improve. If the pain worsens for no apparent reason, please contact the office. b. Intermittent leg pain may also be experienced and should not be concerned about unless it worsens for no apparent reason. If so, please contact the office. 5. We will provide appropriate medication within the normal guidelines of their prescribed use. We will also be very cautious and aware of potential abuse and extended duration of patients' medication needs. a. Pain medications are for your comfort and to assist with sleep and rest so that the tissue can heal. They are not provided in order to return to normal activity and should not be used through the day. To do so or worsening pain at night can result from ongoing tissue damage and development of tolerance to the prescribed medicine. 6. Please allow 2-3 days to process refills. Prescriptions will not be mailed but must be picked up at the office. FOLLOW UP VISIT: Keep your scheduled follow-up appointment. Any questions, please call the office at . Pending Studies at Discharge: No Stand-Alone Forms: [employer], Smoking Cessation Medications and DC Order Prescriptions: New oxycodone 5 mg tablet 5 mg PO Q6H PRN (Reason: pain, severe) Qty: 20 RF: 0 tramadol 50 mg tablet 50 mg PO Q6H PRN (Reason: pain, moderate) Qty: 30 RF: 0 Continued gabapentin 600 mg Tablet 600 mg PO TID RF: 0 meloxicam 15 mg Tablet 15 mg PO QAM RF: 0 acetaminophen [Tylenol Arthritis] 650 mg Tablet Extended Release 650 mg PO Q12H PRN (Reason: Pain) RF: 0 pantoprazole [Protonix] 20 mg Tablet,Delayed Release (Dr/Ec) 20 mg PO BID RF: 0 diphenhydramine HCl [Benadryl] 25 mg Capsule 25 mg PO HS RF: 0 acetaminophen [Tylenol Extra Strength] 500 mg Capsule 500 mg PO Q6H PRN (Reason: Pain) RF: 0 loratadine 10 mg Tablet 10 mg PO QAM RF: 0 vitamin B complex [Super B Complex] Capsule 1 cap PO QAM RF: 0 turmeric 400 mg Capsule 400 mg PO QAM RF: 0 1 dose PO QAM RF: 0 Probiotic 1 tab PO QAM RF: 0 biotin 1 dose PO QAM RF: 0 Discharge Orders: Discharge Order (Routine); Ordered 09/10/20 Ordered By: Asad Stringer Admission Data Admit Date/Time: 09/08/20 13:04 Attending Provider: Asad Stringer Admit Provider: Asad Stringer Primary Care Provider: Asad Hsu Other Providers: Zay Bernabe
[2020-09-10] MEDS: oxyCODONE HCL IR 5 MG TAB (IMMEDIATE RELEASE) PO PRN (13:15)
== END 2020-09-10 13:49 | disposition home or self-care (01) | DRG 454 ==
LOC: ASU 07:59 → 3N 13:04